=== PATIENT | female | born 1985 | race Caucasian/White ===

== ENCOUNTER 2020-12-14 14:43 | Emergency (ER) | payer SELFPAY ==
[~2020-12-14 14:43] MED LIST: ASCORBIC ACID500 MG PO; PULMICORT FLE180 MCG INH; ZPAK PO
[2020-12-14] MEDS ORDERED: ROBAXIN750 MG PO (15:48)
[2020-12-14] MEDS ORDERED: NORCO 5-325 TA1 EACH PO (15:48)
[2020-12-14] MEDS ORDERED: MEDROL 4MG DOSEP4 MG PO (15:48)
== END 2020-12-14 16:30 | disposition home or self-care (01) ==
LOC: FER 14:43
DX: M54.41 Lumbago with sciatica, right side (principal)
CPT/HCPCS: 99283; J1885

== ENCOUNTER 2021-03-10 14:06 | Emergency (ER) | payer OTHER ==
[~2021-03-10 14:06] MED LIST changes: +MEDROL 4MG DOSEP4 MG PO; +NORCO 5-325 TA1 EACH PO; +ROBAXIN750 MG PO
[2021-03-10] MEDS ORDERED: AUGMENTIN 875-1 EACH PO (16:20)
[2021-03-10] MEDS ORDERED: NAPROXEN500 MG PO (16:20)
[2021-03-10] MEDS ORDERED: NORCO 5-325 TA1 EACH PO (16:20)
== END 2021-03-10 16:52 | disposition home or self-care (01) ==
LOC: FER 14:06
DX: H66.91 Otitis media, unspecified, right ear (principal); H72.01 Central perforation of tympanic membrane, right ear
CPT/HCPCS: 99282